=== PATIENT | female | born 1970 | race Caucasian/White ===

== ENCOUNTER 2016-12-18 17:08 | Emergency (ER) | payer OTHER ==
[~2016-12-18] VITALS: Ht 157.5 cm; Wt 63.1 kg
[~2016-12-18 17:08] MED LIST: DOXYCYCLINE HY100 MG PO; ENDOCET 5-3251 EACH PO; FLEXERIL5 MG PO; IBUPROFEN800 MG PO; IMITREX50 MG PO; MOTRIN800 MG PO; NORCO 5/3251 TABLET PO; PERCOCET 5/31 TABLET PO; PERCOCET 7.51 TABLET PO; RELPAX40 MG PO; TOPAMAX100 MG PO; TOPAMAX200 MG PO; WELLBUTRIN XL300 MG PO
[2016-12-18 18:47] VITALS: BP 142/92
== END 2016-12-18 18:47 | disposition home or self-care (01) ==
LOC: EME 17:08
DX: S90.31XA Contusion of right foot, initial encounter (principal); G43.909 Migraine, unspecified, not intractable, without status migrainosus
CPT/HCPCS: 73630; 99281; 99284